=== PATIENT | female | born 1975 ===

== ENCOUNTER 2018-05-02 10:59 | Outpatient (CLI) | payer OTHER ==
[~2018-05-02] VITALS: Ht 162.6 cm; Wt 77.1 kg
== END 2018-05-02 11:15 | disposition home or self-care (01) ==
LOC: OFIC 805 10:59
DX: E04.1 Nontoxic single thyroid nodule (principal)

== ENCOUNTER 2020-05-19 10:24 | Outpatient (CLI) | payer OTHER | END 2020-05-19 10:27 | disposition home or self-care (01) | LOC: SONOGRAMA 10:24 | PROVIDERS: ATTEND Pathology Anatomic Pathology & Clinical Pathology | DX: E04.1 Nontoxic single thyroid nodule (principal) ==